=== PATIENT | male | born 1995 | race African-American/Black ===

== ENCOUNTER 2022-04-07 19:29 | Emergency (ER) | payer OTHER ==
[~2022-04-07] VITALS: Ht 172.7 cm; Wt 90.0 kg
[2022-04-07 19:45] VITALS: BP 146/91
== END 2022-04-07 21:00 | disposition left against medical advice (07) ==
LOC: ER 19:29
DX: Z53.21 Procedure and treatment not carried out due to patient leaving prior to being seen by health care provider (principal)
CPT/HCPCS: Z7610 ×2